=== PATIENT | male | born 1960 | race African-American/Black ===

== ENCOUNTER 2018-01-22 23:57 | Emergency (ER) | payer OTHER ==
[~2018-01-22] VITALS: Ht 180.3 cm; Wt 75.0 kg
[2018-01-23 04:34] VITALS: BP 133/92
== END 2018-01-23 04:35 | disposition home or self-care (01) ==
LOC: ER 23:57
DX: S10.93XA Contusion of unspecified part of neck, initial encounter (principal); F07.81 Postconcussional syndrome; Z87.828 Personal history of other (healed) physical injury and trauma; V43.52XA Car driver injured in collision with other type car in traffic accident, initial encounter; Y93.89 Activity, other specified; Y92.488 Other paved roadways as the place of occurrence of the external cause
CPT/HCPCS: 70450; 72040; 99284